=== PATIENT | male | born 1960 | race Hispanic/Latino ===

== ENCOUNTER 2021-10-23 10:44 | Observation (INO) | payer BC ==
[2021-10-20 08:38] LABS: BASOPHILS # (AUTO) 0.1 (0.0-0.1); BASOPHILS % 0.8 % (0.0-1.0); EOSINOPHILS # (AUTO) 0.3 (0.0-0.4); EOSINOPHILS % 3.2 % (0.0-6.0); HEMOGLOBIN 13.2 g/dL (14.0-18.0); LYMPHOCYTES # (AUTO) 2.4 (1.0-3.2); LYMPHOCYTES % 23.6 % (18.0-39.1); MEAN CORPUSCULAR HEMOGLOBIN 30.1 pg (28-32); MEAN CORPUSCULAR HGB CONC 32.2 g/dL (31-35); MEAN CORPUSCULAR VOLUME 93.4 fL (81-99); MONOCYTES # (AUTO) 0.8 (0.2-0.8); MONOCYTES % 8.2 % (4.4-11.3); NEUTROPHILS # (AUTO) 6.3 (2.1-6.9); NEUTROPHILS % 63.6 % (38.7-80.0); PLATELET COUNT 329 x10e3/uL (140-360); RED BLOOD COUNT 4.39 x10e6/uL (4.3-5.7); RED CELL DISTRIBUTION WIDTH 14.6 % (11.7-14.4)
[2021-10-20 09:00] LABS: CLARITY,URINE CLEAR (CLEAR); COLOR,URINE YELLOW (YELLOW); KETONES,URINE NEGATIVE (NEGATIVE); LEUKOCYTE ESTERASE ,URINE NEGATIVE (NEGATIVE); NITRITE,URINE NEGATIVE (NEGATIVE); PROTEIN,URINE DIPSTICK NEGATIVE (NEGATIVE)
[2021-10-20 09:01] LABS: URINE UROBILINOGEN 0.2 mg/dL (0.2 - 1)
[2021-10-20 09:08] LABS: ANION GAP 9.1 mmol/L (8-16); CALCIUM 8.5 mg/dL (8.4-10.2); CREATININE, SERUM 0.79 mg/dL (0.72-1.25); POTASSIUM 4.1 mmol/L (3.5-5.1)
[~2021-10-23] VITALS: Ht 170.2 cm; Wt 131.5 kg
[~2021-10-23 10:44] MED LIST: CARVEDILOL3.125 MG PO; CRESTOR10 MG PO; DICLOFENAC PO; ISOSORBIDE MONO30 MG PO; METFORMIN HCL500 MG PO; PANTOPRAZOLE SO40 MG PO; POTASSIUM99 M1 PO; ROPIVACAINE 246.25 MG, EPINEPHRINE HCL 1:1000 1ML 0.5 MG, CLONIDINE HCL 0.08 MG, KETORO... INJ ONE; VALSARTAN-HCTZ1 EAC1 PO; VITAMIN B122500 MCG PO
[2021-10-23] MEDS ORDERED: CELECOXIB 200 MG CAP ONE (11:10)
[2021-10-23] MEDS ORDERED: DEXAMETHASONE SOD PHOS 10 MG/1 ML VIAL ONE (11:10)
[2021-10-23] MEDS ORDERED: GABAPENTIN 300 MG CAP ONE (11:11)
[2021-10-23] MEDS ORDERED: ROPIVACAINE 0.5% 5 MG/ML 30 ML SDV ONE (12:47)
[2021-10-23] MEDS ORDERED: Vancomycin IV 1,000 MG ONE (12:57)
[2021-10-23] MEDS ORDERED: TRANEXAMIC ACID 20 ML ONE (12:57)
[2021-10-23] MEDS ORDERED: SODIUM CHLORIDE 0.9% 500ML 500 ML ONE (12:58)
[2021-10-23] MEDS ORDERED: FENTANYL CITRATE/PF 100MCG/2 ML INJ ONE ×2 (13:51→17:50)
[2021-10-23] MEDS ORDERED: MIDAZOLAM HCL 2 MG/2 ML VIAL ONE (13:51)
[2021-10-23] MEDS ORDERED: NALOXONE HCL INJ 0.4 MG/ML AMP IV PRN (16:15)
[2021-10-23] MEDS ORDERED: HYDROMORPHONE 0.2MG/ML-SOD CHL 30ML PCA SYRINGE IV PRN (16:15)
[2021-10-23] MEDS ORDERED: ONDANSETRON HCL INJ 2MG/ML 2ML 2 MG/ML VIAL IV PRN (16:15)
[2021-10-23] MEDS: SODIUM CHLORIDE 0.9% 1000ML 1,000 ML IV SCH ×2 (17:00→17:55)
[2021-10-23] MEDS ORDERED: HYDRALAZINE HCL 20 MG/ML VIAL ONE (17:16)
[2021-10-23 18:20] VITALS: BP 160/82
[2021-10-23 18:28] VITALS: BP 160/82
[2021-10-23 18:30] VITALS: BP 160/82
[2021-10-23] MEDS ORDERED: KETOROLAC TROMETHAMINE 30 MG/ML VIAL ONE (19:25)
[2021-10-23] MEDS ORDERED: SEVOFLURANE INHAL SOLN 250 ML PEN BTL ONE (19:25)
[2021-10-23] MEDS ORDERED: ONDANSETRON HCL INJ 2MG/ML 2ML 2 MG/ML VIAL ONE (19:25)
[2021-10-23] MEDS ORDERED: PROPOFOL IV EMULSION 10 MG/ML 20 ML VIAL ONE (19:25)
[2021-10-23] MEDS ORDERED: POVIDONE IODINE 0.05% 0.05 % ML PO ONE (19:25)
[2021-10-23] MEDS ORDERED: DEXAMETHASONE SOD PHOS INJ 4 MG/ML SDV ONE (19:25)
[2021-10-23 20:00] VITALS: BP 140/72
[2021-10-23] MEDS: ACETAMINOPHEN 1000 MG/100 ML IV SCH (20:00)
[2021-10-23 21:00] VITALS: BP 140/72
[2021-10-23] MEDS ORDERED: SODIUM CHLORIDE 0.9% 250ML 250 ML ONE (22:20)
[2021-10-24] VITALS: BP 140/77
[2021-10-24] MEDS ORDERED: RIVAROXABAN 10 MG TABLET PO SCH (00:30)
[2021-10-24 04:00] VITALS: BP 149/91
[2021-10-24 05:26] LABS: HEMATOCRIT 36.4 % (38.2-49.6); HEMOGLOBIN 11.5 g/dL (14.0-18.0)
[2021-10-24] MEDS: ACETAMINOPHEN 1000 MG/100 ML IV SCH ×3 (06:00→12:47)
[2021-10-24 07:26] LABS: ALBUMIN/GLOBULIN RATIO 0.8 (0.8-2.0); ANION GAP 14.1 mmol/L (8-16); CALCIUM 8.4 mg/dL (8.4-10.2); CREATININE, SERUM 0.67 mg/dL (0.72-1.25); POTASSIUM 4.1 mmol/L (3.5-5.1)
[2021-10-24] MEDS ORDERED: PANTOPRAZOLE SOD 40 MG TABEC PO SCH (07:30)
[2021-10-24 07:52] VITALS: BP 130/99
[2021-10-24 08:50] VITALS: BP 130/99
[2021-10-24] MEDS ORDERED: HYDROCHLOROTHIAZIDE 25 MG TAB PO SCH (09:00)
[2021-10-24] MEDS ORDERED: CARVEDILOL 3.125 MG TAB PO SCH (09:00)
[2021-10-24] MEDS ORDERED: ISOSORBIDE MONONITRATE 30 MG TAB CR PO SCH (09:00)
[2021-10-24] MEDS ORDERED: METFORMIN HCL 500 MG TAB PO SCH (09:00)
[2021-10-24] MEDS ORDERED: VALSARTAN 160 MG TAB PO SCH (09:00)
[2021-10-24] MEDS ORDERED: HYDROCODONE/APAP 5MG-325MG TAB PO PRN ×2 (11:15→15:00)
[2021-10-24 12:08] VITALS: BP 149/91
[2021-10-24] MEDS ORDERED: ONDANSETRON HCL 4 MG ORAL DISINTEGRATING TAB PO PRN (15:15)
[2021-10-24 16:10] VITALS: BP 127/76
[2021-10-24] MEDS ORDERED: ACETAMINOPHEN 1000 MG/100 ML IV PRN (18:00)
== END 2021-10-24 17:55 | disposition home or self-care (01) ==
LOC: OR 10:44 → PACU V 15:23 → MED/SURG2 18:01
PROVIDERS: ADMIT Specialist; ATTEND Specialist
DX: I25.10 Atherosclerotic heart disease of native coronary artery without angina pectoris (principal); Z95.5 Presence of coronary angioplasty implant and graft; E66.01 Morbid (severe) obesity due to excess calories; Z68.42 Body mass index [BMI] 45.0-49.9, adult; G47.33 Obstructive sleep apnea (adult) (pediatric); Z20.822 Contact with and (suspected) exposure to COVID-19; Z01.818 Encounter for other preprocedural examination; E11.69 Type 2 diabetes mellitus with other specified complication; E78.5 Hyperlipidemia, unspecified; F17.200 Nicotine dependence, unspecified, uncomplicated; Z79.4 Long term (current) use of insulin
CPT/HCPCS: 36415; 80048; 80053; 81003; 82948; 85014; 85018; 85025; 86850; 86900; 86920; 94799; C1713; C1776; G0378; J0171; J0360; J0690; J1100; J1885; J2250; J2405; J2795; J3010; J3370; J7040; J7050